=== PATIENT | male | born 1995 | race Caucasian/White ===

== ENCOUNTER 2020-05-21 18:42 | Emergency (ER) | payer MEDICAID, SELFPAY ==
--- NOTE | 2020-05-21 | XR_ITS ---
EXAMINATION: XR CHEST CLINICAL INFORMATION: Right-sided rib pain COMPARISON: Chest x-ray 12/10/2013 TECHNIQUE: 2 views of the chest were obtained. FINDINGS: No significant abnormality is noted involving the heart, lungs, mediastinum, bony thorax or soft tissues. IMPRESSION: Unremarkable examination.
[2020-05-21 20:56] VITALS: BP 136/72; PULSE 63; RESP 16; TEMP 37.2; O2SAT 100; BMI 21.4
--- NOTE | 2020-05-21 23:03 | CT_ITS ---
EXAMINATION: CT CHEST WITHOUT CONTRAST CLINICAL INFORMATION: Blunt trauma right lower ribs COMPARISON: 05/21/2020 TECHNIQUE: Multidetector volumetric CT imaging of the chest was done. Axial MIP volume rendering provided. Sagittal and coronal reformatted images were obtained. This CT examination was performed using dose optimization techniques as appropriate, variously including the following: *Automated exposure control *Adjustment of mA and/or kV according to patient size (this includes techniques or standardized protocols for targeted exams where dose is matched to indication/reason for exam; i.e. extremities or head) *Use of iterative reconstruction technique DLP: 317 mGy-cm FINDINGS: LUNGS: No regions of consolidation bilaterally. MEDIASTINUM: The visualized thyroid gland is unremarkable. Small amount of residual thymic tissue is suspected in the anterior mediastinum. There are subcentimeter mediastinal lymph nodes within the range of normal variation. Cardiac size is within normal limits; no pericardial effusion. PLEURA: There is no pleural effusion. No pleural mass or thickening. AXILLA: No lymphadenopathy. UPPER ABDOMEN: Unremarkable. OSSEOUS STRUCTURES: Unremarkable. IMPRESSION: No acute findings identified.
--- NOTE | 2020-05-21 23:13 | ED.GENADULT ---
HPI - General Adult General Chief complaint: General Medical Stated complaint: KNEE AND FLANK PAIN Time Seen by Provider: 05/21/20 22:52 Related Data Previous Rx's Medication Instructions Recorded ibuprofen 600 mg PO Q6H PRN #20 tab 05/22/20 Allergies Allergy/AdvReac Type Severity Reaction Status Date / Time No Known Allergies Allergy Verified 05/21/20 21:01 PMFSH Social History Social History Advance Directives: No Advance Directives Information Provided: No Physical Exam Vital Signs: Vital Signs: Vital Signs Temp Pulse Resp BP Pulse Ox 05/21/20 20:56 99.0 F 63 16 136/72 100 Body Mass Index 21.4 Discharge Plan Discharge Clinical Impression: Chest wall contusion Qualifiers: Encounter type: initial encounter Laterality: right Qualified Code(s): S20.211A - Contusion of right front wall of thorax, initial encounter Patient Disposition: Home, Self-Care Instructions: Rib Contusion (ED) Additional Instructions: take Tylenol/ Motrin for pain apply ice Prescriptions: New ibuprofen 600 mg tablet 600 mg PO Q6H PRN (Reason: pain) Qty: 20 RF: 0 Stand Alone Forms: Work/School Release
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
--- NOTE | 2020-05-21 23:22 | PC.NURSE ---
Off to CT on hospital bed.
--- NOTE | 2020-05-22 | PC.NURSE ---
MD at bedside explaining results and plan for DC.
[2020-05-22 00:39] VITALS: BP 122/91; PULSE 61; RESP 16
[2020-05-22] MEDS: Ibuprofen 600 MG TABLET PO (00:40)
--- NOTE | 2020-05-22 00:41 | PC.NURSE ---
Pt medicated per EMAR, VSS. Pt provided with DC paperwork.
== END 2020-05-22 00:45 | disposition home or self-care (01) ==
PROVIDERS: Emergency Provider Internal Medicine; PCP Family Medicine
DX: S20.211A Contusion of right front wall of thorax, initial encounter (principal); R07.89 Other chest pain; M25.562 Pain in left knee; X58.XXXA Exposure to other specified factors, initial encounter; Y93.9 Activity, unspecified; Y92.9 Unspecified place or not applicable; Y99.9 Unspecified external cause status
CPT/HCPCS: 71046; 71250; 99283; 99284

== ENCOUNTER 2020-08-12 14:25 | Outpatient (REF) | payer MEDICAID, SELFPAY | END 2020-08-12 14:26 | disposition home or self-care (01) | LOC: HO.LAB 14:25 | PROVIDERS: Visit Provider Internal Medicine | DX: Z20.828 Contact with and (suspected) exposure to other viral communicable diseases (principal) | CPT/HCPCS: 36415; C9803; U0003 ==

== ENCOUNTER 2020-12-28 14:15 | Emergency (ER) | payer MEDICAID, SELFPAY | END 2020-12-28 17:46 | disposition left against medical advice (07) | PROVIDERS: Emergency Provider Emergency Medicine; PCP Family Medicine | DX: Z04.9 Encounter for examination and observation for unspecified reason (principal) ==

== ENCOUNTER 2025-04-15 12:18 | Outpatient (REF) | payer MEDICAID, SELFPAY ==
--- OUTSIDE RECORDS SUMMARY | 2025-04-15 11:30 | XMS_ITS | Encounter Summary ---
Author Organization [employer] Address [address] [facility] 7t [place] [address] Care Team Providers Care Back Gray Cloth Washer Name Role Phone Lenore Stubbs MD Primary Care Provider +1- [phone] Reason for Referral * Consultation (Routine) - Closed Specialty Diagnoses / Procedures Referred By Carolynn silva Referred To Contact Gastroenterology Diagnoses Loose stools Bloody stool History of anal fissures Lenore Stubbs MD [address] [place] [phone] Phone: tel: fax: Referral ID Status Reason Start Date Expiration Date V isits Requested Visits Authorized [id number] Closed Specialty Services Required 04/15/2025 04/15/2026 1 1 Reason for Visit * Reason Comments Follow-up anxity Encounter Details Date Type Department Care Team (Latest Contact Info) Description 04/15/2025 11:30 AM EDT Office Visit [facility] [address] [place] [address] [phone] Lenore Stubbs MD [address] [place] [address] [phone] Schizophrenia, unspecified type (CMS/HCC) (Primary Dx); Anxiety; Selective immunoglobulin A deficiency (CMS/HCC); Bloody stool; Loose stools; History of anal fissures; Other specified health status Social History Tobacco Use Types Packs/Day Years Used Date Smoking Tobacco: Never Assessed Depression Answer Date Recorded Patient Health Questionnaire-9 Score 1 04/15/2025 Patient Health Questionnaire-9 Score 1 04/15/2025 Last PHQ-9: Questionnaire Data Not on file 0 04/15/2025 Housing Stability Answer Date Recorded What is your housing situation today? I have rossy page 04/15/[address] you li ve. Do you have problems with any of the following? None of the above 04/15/2025 Food Insecurity Answer Date Recorded Within the past 12 months, y ou worried that your food would run out before you got money to buy more: Sometimes True 2024 Within the past 12 months,th e food you bought just didn't last and you didn't have enough money to get more: Never True 04/15/2025 Transportation Answer Date Recorded In the past 12 months, has l ack of transportation kept you from medical appts, meetings, work or from getting things needed for daily living? No 04/15/2025 Utilities Answer Date Recorded In the past 12 months, has t he electric, gas, oil or water company threatened to shut off services in your home? No 04/15/2025 Depression Answer Date Recorded Patient Health Questionnaire-2 Score 0 04/15/2025 Internet Access Answer Date Recorded Internet Access Q1 No 04/15/2025 Internet Access Q2 I do not want or need it 03/2025 Sex and Gender Information Value Date Recorded Sex Assigned at Male 06/07/2022 10:19 AM EDT Legal Sex Male 10:19 AM EDT Gender Identity Male 06/07/2022 10:19 AM EDT Sexual Orientation Don't know 06/07/2022 10 :19 AM EDT documented as of this encounter Last Filed Vital Signs Vital Sign Reading Time Taken Comments Blood Pressure 122/84 04/15/2025 11:27 AM EDT Pulse 94 04/15/2025 11:27 AM EDT Temperature 35.8 C (96.4 F) 04/15/2025 11:27 AM EDT Respiratory Rate 20 04/15/2025 11:27 AM EDT Oxygen Saturation 97% 04/15/2025 11:27 AM EDT Inhaled Oxygen Concentration - - Weight 85.1 kg (187 lb 9.6 oz) 04/15/2025 11:27 AM EDT Height - - Body Mass Index 24.09 12/01/2021 12:04 AM EDT documented in this encounter Functional Status * Over the past 2 weeks, how often have you been bothered by any of the following problems? Question Answer Date of Assessment Author Patient Health Questionnaire-2 Score 0 03/2025 11:30 AM Amisha Cerda MA * Little interest or pleasure in doing things Answer Date of Assessment Author Not at all 04/15/2025 11:30 AM Hemanth Cerda MA * Feeling down, depressed, or hopeless Answer Date of Assessment Author Not at all 04/15/2025 11:30 AM Hemanth Cerda MA * Trouble falling or staying asleep, or sleeping too much Answer Date of Assessment Author Not at all 04/15/2025 11:30 AM Hemanth Cerda MA * Feeling tired or having little energy Answer Date of Assessment Author Not at all 04/15/2025 11:30 AM Hemanth Cerda MA * Poor appetite or overeating Answer Date of Assessment Author Not at all 04/15/2025 11:30 AM Hemanth Cerda MA * Feeling bad about yourself - or that you are a failure or have let yourself or your family down Answer Date of Assessment Author Not at all 04/15/2025 11:30 AM Hemanth Cerda MA * Trouble concentrating on things, such as reading the newspaper or watching television Answer Date of Assessment Author Several days 04/15/2025 11:30 AM Hemanth Cerda MA * Moving or speaking so slowly that other people could have noticed? Or the opposite - being so fidgety or restless that you have been moving around a lot more than usual. Answer Date of Assessment Author Not at all 04/15/2025 11:30 AM Hemanth Cerda MA * Thoughts that you would be better off or hurting yourself in some way Answer Date of Assessment Author Not at all 04/15/2025 11:30 AM Hemanth Cerda MA * Patient Health Questionnaire-9 Score Answer Date of Assessment Author 1 04/15/2025 11:30 AM Hemanth Cerda MA documented as of this encounter Progress Notes * Lenore Stubbs MD - 04/15/2025 11:30 AM EDT Manav Jhaveri is a 30 y.o. male with past medical history of immunoglobulin A deficiency, GERD and schizophrenia who presents to the office today for chronic medical conditions and comprehensive annual evaluation. Last seen Aug 2021. Diagnosed 2018. Last hospitalization 2018. In partial remission. He reports he hears voices but they do not bother him. He denies CHASITY. He reports he is doing well and wants to stay off medications for now. He states he may need them in the future but feels safe and has supportive family. For now will remain off Risperidone 4 mg daily and Benztropine 1 mg BID. No longer followed by psychiatry. No longer requiring VNA due to no longer on medications. Services were terminated. Last appt was 09/03/2021 . Last Psychopharmacology televisit was on 12/20/2022. Seen 04/21/23 for psychosis episodes and anxiety. Prescribed Clonidine 0.1 mg BID (not prn) and Sertraline 25 mg. Pt reports doing well, he is with his of 4 years. No kids at this time. Declines birthcontrol. 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 He notes he has some episodes of anxiety and him and his are well acquainted with his schizophrenia hx. Pt notes he still has auditory hallucinations, but is able to cope still without medication. He does reports he sometimes has trouble discerning in public places whether it is a hallucination or people around him. Pt notes he gets most anxious around planes. 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 Denies any dizziness, syncope or fatigue episodes. reports pt has episodes of changes in BM's. Sometimes loose, other times hard. Has occasional hemorrhoids. Has approx. 4-5 BM's just in the morning. Pt is unsure if it is related to dairy products. Denies abnormal weight loss. Has occasional blood in stool outside of hemorrhoids. Social History Lives in [place] and works as a Martial Arts teacher. Has a dog renetta. Tobacco: denied Drugs: marijuana, smokes about 10 blunts a day. Alcohol: a glass of wine on the weekends. Sexuality: Partner(s) current: 1( x4 years). Condoms: declined. control declined. No children. Suicide/Depression: reports episodes of anxiety/panic. Denies suicidial or homacidial ideation. Review of Systems Constitutional: Negative for fatigue, fever and unexpected weight change. Respiratory: Negative for cough and shortness of breath. Cardiovascular: Negative for chest pain. Gastrointestinal: Negative for abdominal pain. Genitourinary: Negative for difficulty urinating. Musculoskeletal: Negative for back pain. Neurological: Negative for dizziness, syncope and headaches. Psychiatric/Behavioral: Positive for hallucinations. Negative for confusion, dysphoric mood and suicidal ideas. The patient is nervous/anxious. Current Medications[1] Allergies[2] Medical History[3] Surgical History[4] Family History[5] Objective Visit Vitals BP 122/84 (BP Location: Left arm, Patient Position: Sitting, BP Cuff Size: Adult) Pulse 94 Temp 96.4 ??F (35.8 ??C) (Temporal) Resp 20 Wt 187 lb 9.6 oz (85.1 kg) SpO2 97% BMI 24.09 kg/m?? BSA 2.11 m?? Physical Exam Constitutional: Appearance: Normal appearance. HENT: Right Ear: Tympanic membrane normal. Left Ear: Tympanic membrane normal. Nose: Nose normal. Mouth/Throat: Pharynx: Oropharynx is clear. Eyes: Extraocular Movements: Extraocular movements intact. Pupils: Pupils are equal, round, and reactive to light. Cardiovascular: Rate and Rhythm: Normal rate and regular rhythm. Heart sounds: Normal heart sounds. Pulmonary: Effort: Pulmonary effort is normal. Breath sounds: Normal breath sounds. No wheezing. Abdominal: General: Abdomen is flat. Palpations: Abdomen is soft. Tenderness: There is no abdominal tenderness. Musculoskeletal: General: Normal range of motion. Skin: General: Skin is warm and dry. Neurological: General: No focal deficit present. Mental Status: He is alert. Psychiatric: Attention and Perception: Attention normal. He perceives auditory hallucinations. He does not perceive visual hallucinations. Mood and Affect: Mood is anxious (occasional episodes, not current.). Speech: Speech normal. Behavior: Behavior normal. Thought Content: Thought content normal. Thought content is not paranoid. Thought content does not include homicidal or suicidal ideation. Judgment: Judgment normal. 30 y.o. male annual evaluation. Assessment & Plan Schizophrenia, unspecified type (CMS/HCC) Diagnosed 2018 for auditory hallucinations. Last hospitalization 2018. In partial remission. Currently he reports he hears voices but they do not bother him. He denies CHASITY. He reports he is doing well and wants to stay off medications for now. He states he may need them in the future but feels safe and has supportive family. -In the past has been on Risperidone 4 mg daily and Benztropine 1 mg BID. -No longer followed by psychiatry. -No longer requiring VNA due to no longer on medications. -Services were terminated 08/2021. Anxiety Hx of anxious episodes. Previously on Clonidine 0.1 mg BID (not prn) and Sertraline 25 mg. Currently associated with airplanes specifically. Denies suicidial or homacidial ideation. -Will trial LORazepam (Ativan) 0.5 MG PRN 04/15/25 -Discussed breathing and motion techniques to get vagus nerve stimulation. Orders: LORazepam (Ativan) 0.5 MG tablet; One tab 1 hours before flying, may repeat once after 1 hours. Selective immunoglobulin A deficiency (CMS/HCC) Stable. No recurrent infections, syncope, or fatigue. Discussed symptoms and return precautions. Bloody stool Changes in BM, sometimes loose, other times hard. Hx of hemorrhoids and anal fissures. Reports bloody stools outside of hemorrhoids. Associated abdominal cramps. Denies dark red stools, vomiting or watery stools. -ordered ELE and celiac panel 04/15/25 -referred to GI 04/15/25 Orders: Referral to Gastroenterology; Future ELE Screen,IFA, with Reflex to Titer and Pattern; Future Loose stools Changes in BM, sometimes loose, other times hard. Hx of hemorrhoids and anal fissures. Reports bloody stools outside of hemorrhoids. Associated abdominal cramps. Denies dark red stools, vomiting or watery stools. -ordered ELE and celiac panel 04/15/25 -referred to GI 04/15/25 Orders: Celiac Disease Comprehensive Panel; Future Referral to Gastroenterology; Future History of anal fissures -referred to GI 04/15/25 Orders: Referral to Gastroenterology; Future Other specified health status -next comprehensive annual evaluation due after 04/15/26 -eye care not needed. -dental home is encouraged -bacilio care proxy given and filed 04/15/25 Annual Evaluation -Normal growth and development. -Anticipatory guidance discussed. -Preventative care / harm reduction discussed. Follow up in about 1 year (around 04/15/2026) for physical. I, Lorelei Carrillo, am serving as a scribe to document services personally performed by Dr. Franklin, based on the patient's response to questions by provider and providers statements to me. [1] Current Outpatient Medications: LORazepam (Ativan) 0.5 MG tablet, One tab 1 hours before flying, may repeat once after 1 hours., Disp: 10 tablet, Rfl: 0 [2] No Known Allergies [3] Past Medical History: Diagnosis Date Near syncope 10/21/2023 Schizophrenia ([facility]) 03/19/2022 Diagnosed 2018. Last hospitalization 2018. In partial remission. He reports he hears voices but they do not bother him. He denies CHASITY. He reports he is doing well and wants to stay off medications for now. He states he may need them in the future but feels safe and has supportive family. For now will remain off Risperidone 4 mg daily and Benztropine 1 mg BID. He will be following up with his psy Selective immunoglobulin A deficiency ([facility]) 06/15/2023 Syncope 06/15/2023 [4] History reviewed. No pertinent surgical history. [5] No family history on file. documented in this encounter Miscellaneous Notes * Assessment & Plan Note - Lenore Stubbs MD - 04/15/2025 11:30 AM EDT Associated Problem(s): Schizophrenia ([facility]) Diagnosed 2018 for auditory hallucinations. Last hospitalization 2019. In partial remission. Currently he reports he hears voices but they do not bother him. He denies CHASITY. He reports he is doing well and wants to stay off medications for now. He states he may need them in the future but feels safe and has supportive family. -In the past has been on Risperidone 4 mg daily and Benztropine 1 mg BID. -No longer followed by psychiatry. -No longer requiring VNA due to no longer on medications. -Services were terminated 08/2021. * Assessment & Plan Note - Lenore Stubbs MD - 04/15/2025 11:30 AM EDT Associated Problem(s): Selective immunoglobulin A deficiency (CMS/HCC) Stable. No recurrent infections, syncope, or fatigue. Discussed symptoms and return precautions. * Assessment & Plan Note - Lenore Stubbs MD - 04/15/2025 11:30 AM EDT Associated Problem(s): Other specified health status -next comprehensive annual evaluation due after 04/15/26 -eye care not needed. -dental home is encouraged -bacilio care proxy given and filed 04/15/25 * Assessment & Plan Note - Lenore Stubbs MD - 04/15/2025 11:30 AM EDT Associated Problem(s): Anxiety Hx of anxious episodes. Previously on Clonidine 0.1 mg BID (not prn) and Sertraline 25 mg. Currently associated with airplanes specifically. Denies suicidial or homacidial ideation. -Will trial LORazepam (Ativan) 0.5 MG PRN 04/15/25 -Discussed breathing and motion techniques to get vagus nerve stimulation. Orders: LORazepam (Ativan) 0.5 MG tablet; One tab 1 hours before flying, may repeat once after 1 hours. * Assessment & Plan Note - Lenore Stubbs MD - 04/15/2025 11:30 AM EDT Associated Problem(s): History of anal fissures -referred to GI 04/15/25 Orders: Referral to Gastroenterology; Future documented in this encounter Plan of Treatment Pending Results Name Type Priority Associated Diagnoses Date /Time Iron And Total Iron Binding Capacity Lab Routine Bloody stool Loose stools 04/15/2025 12:21 PM EDT Scheduled Orders Name Type Priority Associated Diagnoses Orde r Schedule Celiac Disease Comprehensive Panel Lab Routine Loose stools Expected: 04/15/2025, Expires: 04/15/2026 ELE Screen,IFA, with Reflex to Titer and Pattern Lab Routine Bloody stool Expected: 04/15/2025 (Approximate), Expires: 04/15/2026 Ferritin Lab Routine Bloody stool Loose stools Expected: 04/15/2025, Expires: 04/15/2026 TSH with Reflex to Free T4 Lab Routine Bloody stool Loose stools Expected: 04/15/2025 (Approximate), Expires: 04/15/2026 Vitamin B12 (Cobalamin) and Folate Panel, Serum Lab Routine Bloody stool Loose stools Expected: 04/15/2025, Expires: 04/15/2026 Scheduled Referrals Name Type Priority Associated Diagnoses Order Schedule Referral to Gastroenterology Outpatient Referral Routine Loose stools Bloody stool History of anal fissures Expected: 04/15/2025 (Approximate), Expires: 04/15/2026 documented as of this encounter Procedures Procedure Name Priority Date/Time Associated Diagnosis Comments CBC WITH AUTO DIFFERENTIAL Routine 04/15/2025 12:21 PM EDT Bloody stool Loose stools IRON AND TOTAL IRON BINDING CAPACITY Routine 04/15/2025 12:21 PM EDT Bloody stool Loose stools documented in this encounter Results * CBC auto differential (04/15/2025 12:21 PM EDT) White Blood Count 6.5 4.8 - 10.8 X10*3/uL [facility] Red Blood Count 4.86 4.60 - 5.80 X10*6/uL [facility] Hemoglobin 15.3 14.0 - 18.0 g/dl [facility] Hematocrit 44.4 42.0 - 52.0 % [facility] Mean Corpuscular Volume 91.4 80.0 - 98.0 fL [facility] Mean Corpuscular Hemoglobin 31.5 27.0 - 33.0 pg [facility] Mean Corpuscular HGB Conc 34.5 31.0 - 36.0 g/dl [facility] Red Cell Distribution Width 12.3 11.0 - 16.0 % [facility] Platelet Count 240 160 - 400 X10*3/uL [facility] Mean Platelet Volume 11.4 9.4 - 12.4 fL [facility] Neutrophils Percent Auto 64.2 45 - 73 % [facility] Imm Gran Pct Auto 0.3 0.0 - 0.4 % [facility] Lymphocytes Percent Auto 27.0 20 - 40 % [facility] Monocytes Percent Auto 4.6 2 - 11 % [facility] Eosinophils Percent Auto 3.1 0 - 4 % [facility] Basophils Percent Auto 0.8 0 - 2 % [facility] NRBC Pct Auto 0.0 0.0 - 0.2 /100WBC [facility] Neutrophils Absolute Auto 4.2 2.0 - 8.3 x10*3/uL [facility] Imm Gran Abs Auto 0.02 0.00 - 0.03 X10*3/uL [facility] Lymphocytes Absolute Auto 1.8 1.2 - 4.9 X10*3/uL [facility] Monocytes Absolute Auto 0.3 0.1 - 1.2 X10*3/uL [facility] Eosinophils Absolute Auto 0.2 0.0 - 0.4 X10*3/uL [facility] Basophils Absolute Auto 0.1 0.0 - 0.2 X10*3/uL [facility] NRBC Abs Auto 0.000 0.0 - 0.012 X10*3/uL [facility] Blood Venous blood specimen / Unknown 04/15/2025 12:21 PM EDT 04/15/2025 1:56 PM EDT us Lenore Stubbs MD LAB BLOOD ORDERABLES Final Result Performing Organization Address City/State/[facility] Co de Phone Number [facility] [address] [place] [address] [phone] documented in this encounter Visit Diagnoses Diagnosis Schizophrenia, unspecified type (CMS/HCC)- Primary Anxiety Anxiety state, unspecified 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
[2025-04-15 14:01] LABS: MANUAL DIFF FLAG NO
[2025-04-15 14:07] LABS: Hematocrit 44.4 % (42.0-52.0); Hemoglobin 15.3 g/dl (14.0-18.0); Imm Gran Abs Auto 0.02 X10*3/uL (0.00-0.03); Imm Gran Pct Auto 0.3 % (0.0-0.4); Lymphocytes Absolute Auto 1.8 X10*3/uL (1.2-4.9); Mean Corpuscular HGB Conc 34.5 g/dl (31.0-36.0); Mean Corpuscular Hemoglobin 31.5 pg (27.0-33.0); Mean Corpuscular Volume 91.4 fL (80.0-98.0); NRBC Abs Auto 0.000 X10*3/uL (0.0-0.012); NRBC Pct Auto 0.0 /100WBC (0.0-0.2); Platelet Count 240 X10*3/uL (160-400); Red Blood Count 4.86 X10*6/uL (4.60-5.80); White Blood Count 6.5 X10*3/uL (4.8-10.8)
[2025-04-15 14:31] LABS: Alanine Aminotransferase 21 U/L (0-40); Albumin Level 4.4 g/dL (3.5-5.0); Alkaline Phosphatase 65 U/L (39-117); Anion Gap 11 (12-20); Aspartate Amino Transferase 20 U/L (5-37); Blood Urea Nitrogen 13 mg/dL (9-16); Calcium 8.7 mg/dL (8.4-10.2); Carbon Dioxide 24 mmol/L (22-29); Chloride 109 mmol/L (96-108); Cholesterol 180 mg/dL (<200); Estimated Glomerular Filt Rate > 60; HDL Cholesterol 41 mg/dL (>40); Iron 75 mcg/dL (45-160); Percent Iron Saturation 29 % (15-50); Potassium 4.0 mmol/L (3.3-5.1); Sodium 140 mmol/L (135-145); Total Iron Binding Capacity 257 mcg/dL (228-428); Total Protein 7.0 g/dL (6.5-8.0); Triglycerides 80 mg/dL (<150); Unsaturated Iron Binding 182 ug/dL
--- OUTSIDE RECORDS SUMMARY | 2025-04-15 14:40 | XMS_ITS | Encounter Summary ---
Author Organization [employer] Address [address] [facility] 7t [place] [address] Care Team Providers Care Shipping Room Supervisor Name Role Phone Lenore Stubbs MD Primary Care Provider [phone]- [phone] Encounter Details Date Type Department Care Team (Latest Contact Info) Description 04/15/2025 Travel Social History Tobacco Use Types Packs/Day Years [...] AM EDT documented as of this encounter Functional Status * Over the [...] of Assessment Author 1 04/15/2025 11:30 AM EDT Hemanth Moreno MA documented as of this encounter Plan of Treatment Not on file documented as of this encounter Visit Diagnoses Not on filedocumented in this encounter Additional Health Concerns Assessment Noted Time PHQ-9 Depression Total Score: 1 04/15/20 11:30 AM EDT documented as of this encounter Care Teams Shipping Room Supervisor Relationship Specialty Start Date End Date Lenore Stubbs MD [address] [place] [address] [place] [phone] PCP - General Family Medicine 08/08/18 documented as of this encounter
--- OUTSIDE RECORDS SUMMARY | 2025-04-15 14:40 | XMS_ITS | Clinical Summary ---
Author Organization [facility] Address [address] [place] [address] Care Team Providers Care Language And Literature Division Chair Name Role Phone Unavailable Primary Care Provider Unavailabl e Social History Tobacco Use Types Packs/Day Years Used Date Smoking Tobacco: Never Assessed Sex and Gender Information Value Date Recorded Sex Assigned at Not on file Legal Sex Male 8:57 PM EST Gender Identity Not on file Sexual Orientation Not on file Plan of Treatment Health Maintenance Due Date Last Done Comments DTaP,Tdap,and Td Vaccines (1 - Tdap) 02/14/2016 Hepatitis B Vaccines (1 of 3 - 19+ 3-dose series) 02/14/2016 HIV Screening 09/02/2023 Hepatitis C Screening 09/02/2023 Social Influencers of Health Screening 09/02/2023 Depression Screening 08/08/2024 COVID-19 Vaccine ( - 2023-2 5 season) 2025 Influenza Vaccine (#1) 2025 HIB Vaccines Aged Out No longer eligi ble based on patient's age to complete this topic HPV Vaccines Aged Out No longer eligi ble based on patient's age to complete this topic Hepatitis A Vaccines Aged Out No long er eligible based on patient's age to complete this topic IPV Vaccines Aged Out No longer eligi ble based on patient's age to complete this topic MMR Vaccines Aged Out No longer eligi ble based on patient's age to complete this topic Meningococcal ACWY Vaccine Aged Out N o longer eligible based on patient's age to complete this topic Meningococcal B Vaccine Aged Out No l onger eligible based on patient's age to complete this topic Pneumococcal Vaccine: Pediat rics (0 to 5 Years) and At-Risk Patients (6 to 49 Years) Aged Out No longer eligible b ased on patient's age to complete this topic RSV Immunization Patients Un ian 20 months Aged Out No longer eligible b ased on patient's age to complete this topic Varicella Vaccines Aged Out No longer eligible based on patient's age to complete this topic
--- OUTSIDE RECORDS SUMMARY | 2025-04-15 14:40 | XMS_ITS | Encounter Summary ---
Author Organization [employer] Address [address] [facility] 7t [place] [address] Care Team Providers Care Tenter Name Role Phone Lenore Stubbs MD Primary Care Provider [phone]- [phone] Reason for Visit * Reason Onset Date Comments Med Refill 04/04/2025 Encounter Details Date Type Department Care Team (Late st Contact Info) Description 04/04/2025 Refill [facility] [address] [place] [phone] Lenore Stubbs MD [address] [place], [place] [phone] Social History Tobacco Use Types Packs/Day Years Used Date Smoking Tobacco: Never Assessed Depression Answer Date Recorded Patient Health Questionnaire-9 Score 7 04/21/2023 Depression Answer Date Recorded Patient Health Questionnaire-2 Score 0 04/21/2023 Sex and Gender Information Value Date Recorded Sex Assigned at Male 06/07/2022 10:19 AM EDT Legal Sex Male 10:19 AM EDT Gender Identity Male 06/07/2022 10:19 AM EDT Sexual Orientation Don't know 06/07/2022 10 :19 AM EDT documented as of this encounter Plan of Treatment Not on file documented as of this encounter Visit Diagnoses Not on filedocumented in this encounter Additional Health Concerns Assessment Noted Time PHQ-9 Depression Total Score: 7 04/21/20 23 9:11 AM EDT documented as of this encounter Care Teams Tenter Relationship Specialty Start Date End Date Lenore Stubbs MD [address] [place] [address] [phone] PCP - General Family Medicine 08/08/18 documented as of this encounter
--- OUTSIDE RECORDS SUMMARY | 2025-04-15 14:40 | XMS_ITS | Encounter Summary ---
Author Organization [employer] Address [address] [facility] [address] [place] [address] Care Team Providers Care Superintendent Nonselling Name Role Phone Lenore Stubbs MD Primary Care Provider [phone]- [phone] Encounter Details Date Type Department Care Team (Latest Contact Info) Description 04/12/2025 Travel Social History Tobacco Use Types Packs/Day [...] documented as of this encounter Care Teams Superintendent Nonselling Relationship Specialty Start Date End Date Lenore Stubbs MD [address] [place] [phone] PCP - General Family Medicine 08/08/18 documented as of this encounter
--- OUTSIDE RECORDS SUMMARY | 2025-04-15 14:40 | XMS_ITS | Encounter Summary ---
Author Organization [employer] Address [address] [facility] 7t [place] [address] Care Team Providers Care Dehydrating Press Operator Name Role Phone Lenore Stubbs MD Primary Care Provider [phone]- [phone] Encounter Details Date Type Department Care Team (Late st Contact Info) Description 04/12/2025 Telephone [facility] [address] [place], [place] [phone] Debbie Mosquera [place] Social History Tobacco Use Types Packs/Day Years [...] AM EDT documented as of this encounter Miscellaneous Notes * Telephone Encounter - Debbie Mosquera MA - 04/12/2025 10:20 AM EDT Chart Prep Labs: not done Images: not applicable Referrals: not applicable Vaccines due: Covid and Flu Screenings: hiv screening Overdue care gaps: SBIRT, SDOH, PHQ-9, and Disability screen documented in this encounter Plan of Treatment Not on file documented as of this encounter Visit Diagnoses Not on filedocumented in this encounter Additional Health Concerns Assessment Noted Time PHQ-9 Depression Total Score: 7 04/21/20 23 9:11 AM EDT documented as of this encounter Care Teams Dehydrating Press Operator Relationship Specialty Start Date End Date Lenore Stubbs MD [address] [place] [address] PCP - General Family Medicine 08/08/18 documented as of this encounter
--- OUTSIDE RECORDS SUMMARY | 2025-04-15 14:40 | XMS_ITS | Clinical Summary ---
Author Organization [employer] Address [address] [facility] [address] [place] [address] Care Team Providers Care Oil Expeller Operator Name Role Phone Lenore Stubbs MD Primary Care Provider [phone]- [phone] Allergies No known active allergies Medications LORazepam (Ativan) 0.5 MG tabletIndication s:Anxiety One tab 1 hours before flying, may repeat once after 1 hours. 10 tablet 04/15/2025 Active Active Problems Problem Noted Date Diagnosed Date Anxiety 04/15/2025 Overview (04/15/2025): Hx of anxious episodes. Previously on Clonidine 0.1 mg BID (not prn) and Sertraline 25 mg. Currently associated with airplanes specifically. Denies suicidial or homacidial ideation. -Will trial LORazepam (Ativan) 0.5 MG PRN 04/15/25 -Discussed breathing and motion techniques to get vagus nerve stimulation. Assessment & Plan (04/15/2025 12:28 PM EDT): Hx of anxious episodes. Previously on Clonidine 0.1 mg BID (not prn) and Sertraline 25 mg. Currently associated with airplanes specifically. Denies suicidial or homacidial ideation. -Will trial LORazepam (Ativan) 0.5 MG PRN 04/15/25 -Discussed breathing and motion techniques to get vagus nerve stimulation. Orders: LORazepam (Ativan) 0.5 MG tablet; One tab 1 hours before flying, may repeat once after 1 hours. 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 No recurrent infections, syncope, or fatigue. Discussed symptoms and return precautions. Assessment & Plan (04/15/2025 12:28 PM EDT): Stable. No recurrent infections, syncope, or fatigue. Discussed symptoms and return precautions. Other specified health status 06/15/2023 Overview (04/15/2025): -next comprehensive annual evaluation due after 04/15/26 -eye care not needed. -dental home is encouraged -bacilio care proxy given and filed 04/15/25 Assessment & Plan (04/15/2025 12:28 PM EDT): -next comprehensive annual evaluation due after 04/15/26 -eye care not needed. -dental home is encouraged -bacilio care proxy given and filed 04/15/25 Gastroesophageal reflux disease 03/19/2022 06/15/2023 Schizophrenia 03/19/2022 06/15/2023 Overview (04/15/2025): Diagnosed 2018 for auditory hallucinations. Last hospitalization [...] longer on medications. -Services were terminated 08/2021. Assessment & Plan (04/15/2025 12:28 PM EDT): Diagnosed 2018 for auditory hallucinations. Last hospitalization [...] longer on medications. -Services were terminated 08/2021. Resolved Problems Problem Noted Date Diagnosed Date Resolved Date Near syncope 10/21/2023 07/30/2024 Syncope 06/15/2023 06/15/2023 07/30/2024 Mixed obsessional thoughts and acts 12/20/2022 07/30/2024 Assessment & Plan (12/20/2022 4:11 PM EDT): Pt obsessively checks the time, awakening every hour to do so. Will not resume Risperidone at this time, as it will likely cause somnolence and potentially exacerbate his anxiety around time checking. Instead, he will start Sertraline 25 mg once daily x 2 weeks, then 2 tabs daily. Cautioned about the possibility of paradoxical worsening of symptoms including bad thoughts (e.g., SI); or sexual dysfunction. If he has problems with the medication stop taking it. F/u with me in 1 month. Will also be referred for counseling. Psychosis 12/20/2022 07/30/2024 Assessment & Plan (04/21/2023 10:09 AM EDT): Constantly hears voices, but does not find this too disturbing. Prefers to seek counseling prior to resuming antipsychotic medication. He will F/U with [facility] and return their call. Let us know is he needs a new referral. More troubling is anxiety with frequent panic attacks. Will start Clonidine 0.1 mg BID (not prn). Also previously reported OCD symptoms with mixed obsessional thoughts and acts. Did improve with Sertraline and will restart Sertraline 25 mg daily x 2 weeks then 2 tabs daily. F/U with me in 1 month. He agrees with the plan. Assessment & Plan (12/20/2022 4:08 PM EDT): Previously thought to be schizophrenia. Previously took Risperidone 4 mg at bedtime. Pt has been stable off antipsychotics for more than 1 year. Constantly hears voices, but does not find this distressing. Will not resume antipsychotic at this time. Encounters Date Type Department Care Team Description 04/15/2025 11:30 AM EDT Office Visit [facility] [address] [place] [phone] Lenore Stubbs MD Schizophrenia, unspecified type (CMS/HCC) (Primary Dx); Anxiety; Selective immunoglobulin A deficiency (CMS/HCC); Bloody stool; Loose stools; History of anal fissures; Other specified health status 04/15/2025 Travel 04/12/2025 Travel 04/12/2025 Telephone [facility] [address] [place] [phone] Debbie Mosquera [place] 04/05/2025 Telephone [facility] [address] [place] [address] Ana Hardy RN NTTS Triage 04/04/2025 Telephone [facility] [address] [place] [address] Gaby Martinez, YOLY Med Refill 04/04/2025 Refill [facility] [address] [place] [address] Lenore Stubbs MD from Last 3 Months Immunizations Immunization Administration Dates Next Due DTaP 03/17/2001, 9,01/15/1998,10/23,1997 HPV 9-Valent 01/21/2016 HPV, Quadrivalent 01/10/2014,03/16/2012 Hep B, Adolescent or Pediatric 01/23/1998,1997,1997 Hib (HbOC) 04/07/1999, 8,1997,07/06 IPV 03/17/2001, 8,1997,07/04 Influenza injectable quadriv alent preservative free 07/29/2021,07/27/2018 Influenza, IIV3, injectable 07/10/2009 MMR 03/17/2001,02/27/1998 Meningococcal MCV4P ACYW-135 01/27/2017,03/16/20 12 Tdap 07/29/2021,07/10/2009 Varicella 03/16/2012,02/27/1998 Social History Tobacco Use Types Packs/Day Years Used Date Smoking Tobacco: Never Assessed Depression Answer Date Recorded Patient Health Questionnaire-9 Score 1 04/15/2025 Patient Health Questionnaire-9 Score 1 04/15/2025 Last PHQ-9: Questionnaire Data Not on file 0 04/15/2025 Housing Stability Answer Date Recorded What is your housing situation today? I have rossy kaylee 04/15/[address] you li [...] Don't know 06/07/2022 10 :19 AM EDT Last Filed Vital Signs Vital Sign Reading Time Taken Comments Blood Pressure 122/84 04/15/2025 11:27 AM EDT Pulse 94 04/15/2025 11:27 AM EDT Temperature 35.8 C (96.4 F) 04/15/2025 11:27 AM EDT Respiratory Rate 20 04/15/2025 11:27 AM EDT Oxygen Saturation 97% 04/15/2025 11:27 AM EDT Inhaled Oxygen Concentration - - Weight 85.1 kg (187 lb 9.6 oz) 04/15/2025 11:27 AM EDT Height 188 cm (6' 2 ) 12/01/2021 12:04 AM EDT Body Mass Index 24.09 12/01/2021 12:04 AM EDT Plan of Treatment Health Maintenance Due Date Last Done Comments HIV Screening 1997 Tobacco Screening 2009 Family Planning (PISQ) 02/14/2012 Hepatitis C Screening 2015 Pneumococcal Vaccine: Pediatrics (0 to 5 Years) and At-Risk Patients (6 to 49) Years (1 of 2 - PCV) 02/14/2016 Zoster Vaccines (1 of 2) 02/14/2016 COVID-19 Vaccine (3 - Moderna risk series) 09/30/2021 09/02/2021, 08/05/2021 Influenza Vaccine (#1) 2025 , 07/27/2018, 07/10/2009 Alcohol/Substance Use Screening 04/15/2026 04/15/2025 Depression Screening 04/15/2026 04/15/2025, 04/15/20 25 Disability Screening 04/15/2026 04/15/2025 SDOH Screening 04/15/2026 04/15/2025 DTaP/Tdap/Td Vaccines (8 - Td or Tdap) 07/29/2031 07/29/2021, 07/10/2009, 03/17/2001, Additional history exists RSV Patients and Patients Aged 60 years or older (1 - 1-dose 75+ series) 02/14/2072 Hepatitis B Vaccines Completed 01/23/1998, 1997, 1997 HIB Vaccines Completed 04/07/1999, 01/06, 1997, Additional history exists IPV Vaccines Completed 03/17/2001, 01/06, 1997, Additional history exists HPV Vaccines Completed 01/21/2016, 06/0 12/2013, 03/16/2012 Meningococcal Vaccine Aged Out 01/27/2017, 012 No longer eligible based on patient's age to complete this topic Hepatitis A Vaccines Aged Out No long er eligible based on patient's age to complete this topic Meningococcal B Vaccine Aged Out No l onger eligible based on patient's age to complete this topic RSV under 20 months Aged Out No longe r eligible based on patient's age to complete this topic Rotavirus Vaccines Aged Out No longer eligible based on patient's age to complete this topic Procedures Procedure Name Priority Date/Time Associated Diagnosis Comments IRON AND TOTAL IRON BINDING CAPACITY Routine 04/15/2025 12:21 PM EDT Bloody stool Loose stools CBC WITH AUTO DIFFERENTIAL Routine 04/15/2025 12:21 PM EDT Bloody stool Loose stools BASIC METABOLIC PANEL Routine 04/15/2025 12:21 PM EDT Schizophrenia, unspecified type (CMS/HCC) HEPATIC FUNCTION PANEL Routine 04/15/2025 12:21 PM EDT Schizophrenia, unspecified type (CMS/HCC) LIPID PANEL, STANDARD Routine 04/15/2025 12:21 PM EDT Preventative health care from Last 3 Months Results * CBC auto differential (04/15/2025 12:21 PM EDT) White Blood Count 6.5 4.8 - 10.8 X10*3/uL [facility] Red Blood Count 4.86 4.60 - 5.80 X10*6/uL [facility] Hemoglobin 15.3 14.0 - 18.0 g/dl [facility] Hematocrit 44.4 42.0 - 52.0 % [facility] Mean Corpuscular Volume 91.4 80.0 - 98.0 fL [facility] Mean Corpuscular Hemoglobin 31.5 27.0 - 33.0 pg [facility] Mean Corpuscular HGB Conc 34.5 31.0 - 36.0 g/dl [facility] Red Cell Distribution Width 12.3 11.0 - 16.0 % [facility] Platelet Count 240 160 - 400 X10*3/uL [facility] Mean Platelet Volume 11.4 9.4 - 12.4 fL [facility] Neutrophils Percent Auto 64.2 45 - 73 % [facility] Imm Gran Pct Auto 0.3 0.0 - 0.4 % [facility] Lymphocytes Percent Auto 27.0 20 - 40 % [facility] Monocytes Percent Auto 4.6 2 - 11 % [facility] Eosinophils Percent Auto 3.1 0 - 4 % [facility] Basophils Percent Auto 0.8 0 - 2 % [facility] NRBC Pct Auto 0.0 0.0 - 0.2 /100WBC [facility] Neutrophils Absolute Auto 4.2 2.0 - 8.3 x10*3/uL [facility] Imm Gran Abs Auto 0.02 0.00 - 0.03 X10*3/uL [facility] Lymphocytes Absolute Auto 1.8 1.2 - 4.9 X10*3/uL [facility] Monocytes Absolute Auto 0.3 0.1 - 1.2 X10*3/uL [facility] Eosinophils Absolute Auto 0.2 0.0 - 0.4 X10*3/uL [facility] Basophils Absolute Auto 0.1 0.0 - 0.2 X10*3/uL [facility] NRBC Abs Auto 0.000 0.0 - 0.012 X10*3/uL [facility] Blood Venous blood specimen / Unknown 04/15/2025 12:21 PM EDT 04/15/2025 1:56 PM EDT us Lenore Stubbs MD LAB BLOOD ORDERABLES Final Result Performing Organization Address City/State/[facility] Co de Phone Number [facility] [address] [place] [address] [phone] from Last 3 Months Care Teams Oil Expeller Operator Relationship Specialty Start Date End Date Lenore Stubbs MD [address] [place] [phone] PCP - General Family Medicine 08/08/18
[2025-04-15 14:51] LABS: Folate 7.0 ng/mL (> or = 4.0); Vitamin B12 293 pg/mL (200-900)
[2025-04-15 14:57] LABS: Ferritin 81 ng/mL (20-250)
[2025-04-16 04:22] LABS: HIV Num 1 0.06 S/CO (0.00-0.99)
[2025-04-16 05:03] LABS: ~HepC Num1 0.08 S/CO (0.00-0.79); ~Hepatitis C Antibody Nonreactive (Nonreactive)
[2025-04-16 20:38] LABS: Immunoglobulin A 155 mg/dL (47-310)
[2025-04-18 21:28] LABS: Anti Nuclear Antibody Screen POSITIVE (NEGATIVE); Anti Nuclear Antibody Titer 1:160 titer
== END 2025-04-15 12:19 | disposition home or self-care (01) ==
LOC: HO.HHCL 12:18
PROVIDERS: PCP Family Medicine; Visit Provider Family Medicine
DX: Z00.00 Encounter for general adult medical examination without abnormal findings (principal); Z11.4 Encounter for screening for human immunodeficiency virus [HIV]; Z11.59 Encounter for screening for other viral diseases; Z11.3 Encounter for screening for infections with a predominantly sexual mode of transmission; K92.1 Melena; F20.9 Schizophrenia, unspecified
CPT/HCPCS: 36415; 80048; 80061; 80076; 82607; 82728; 82746; 82784; 83540; 84443; 85025; 86038; 86039; 86364; 86803; 87389